=== PATIENT | male | born 1965 | race Hispanic/Latino ===

== ENCOUNTER 2020-09-05 12:53 | Emergency (ER) | payer OTHER ==
[2020-09-05] MEDS ORDERED: DIATR MEGLU/DIATRIZOATE SODIUM 30 ML BOTTLE ONE (13:06)
== END 2020-09-05 16:35 | disposition home or self-care (01) ==
LOC: EDH 12:53
DX: K94.23 Gastrostomy malfunction (principal); I10 Essential (primary) hypertension; Z86.73 Personal history of transient ischemic attack (TIA), and cerebral infarction without residual deficits
CPT/HCPCS: 74018; 99283; Q9963

== ENCOUNTER 2020-11-07 12:31 | Emergency (ER) | payer OTHER ==
[2020-11-07 13:00] LABS: BASOPHILS % (AUTO) 0.5 % (0.0-5.0); EOSINOPHILS % (AUTO) 3.6 % (0.0-8.0); HEMATOCRIT 37.3 % (42-54); LYMPHOCYTES % (AUTO) 28.5 % (21.0-51.0); MEAN CORPUSCULAR HEMOGLOBIN 32.3 pg (27.0-33.0); MEAN CORPUSCULAR HGB CONC 33.5 g/dL (32.0-36.0); MEAN CORPUSCULAR VOLUME 96.4 fL (79-99); MONOCYTES % (AUTO) 7.1 % (3.0-13.0); NEUTROPHILS % (AUTO) 59.9 % (40.0-77.0); PLATELET COUNT (AUTO) 217 K/uL (130-400); RED BLOOD CELL COUNT(AUTO) 3.87 MIL/uL (4.50-6.20); RED CELL DISTRIBUTION WIDTH 13.9 % (11.0-15.5); WHITE BLOOD COUNT (AUTO) 8.3 K/uL (4.8-10.8)
[2020-11-07] MEDS ORDERED: SODIUM CHLORIDE 0.9% 1000ML 1,000 ML IV ONE (13:04)
[2020-11-07] MEDS ORDERED: ALBUTEROL INHALER 90MCG/INH IH ONE (13:04)
[2020-11-07 13:16] LABS: ALBUMIN 2.7 g/dL (3.5-5.0); BILIRUBIN,TOTAL 0.8 mg/dL (0.2-1.0); CREATININE 0.6 mg/dL (0.5-1.5); POTASSIUM 4.9 mmol/L (3.5-5.1); TOTAL PROTEIN, SERUM 6.7 g/dL (6.0-8.3)
[2020-11-07 13:20] LABS: B-TYPE NATRIURETIC PEPTIDE 142 pg/mL (0-100)
[2020-11-07 13:22] LABS: INR 1.34 (0.85-1.15)
[2020-11-07 13:23] LABS: PARTIAL THROMBOPLASTIN TIME 27.3 SEC (26.3-35.5)
[2020-11-07] MEDS ORDERED: IOHEXOL 350 MG/ML 100ML INFUS..BTL IV ONE (13:26)
[2020-11-07 13:29] LABS: APPEARANCE,URINE Clear (CLEAR); BILIRUBIN,URINE Negative (NEGATIVE); COLOR,URINE Yellow (YELLOW); GLUCOSE, URINE (UA) Negative (NEGATIVE); KETONES,URINE Negative (NEGATIVE); LEUKOCYTE ESTERASE ,URINE Trace (NEGATIVE); NITRATE,URINE Negative (NEGATIVE); OCCULT BLOOD,URINE Small (NEGATIVE); PH,URINE 7.5 (5.0-8.0); PROTEIN,URINE Negative (NEGATIVE)
[2020-11-07 13:43] LABS: BACTERIA,URINE Few /HPF (None Seen); SQUAMOUS EPITHELIAL CELL,UR Few /HPF (0-2)
== END 2020-11-07 17:10 | disposition home or self-care (01) ==
LOC: EDH 12:31
DX: B34.9 Viral infection, unspecified (principal); E86.0 Dehydration; I95.9 Hypotension, unspecified; I48.91 Unspecified atrial fibrillation; Z20.828 Contact with and (suspected) exposure to other viral communicable diseases
CPT/HCPCS: 36415; 71045; 74177; 80053; 81001; 82550; 83690; 83880; 84484; 85025; 85610; 85730; 87426; 93005; 96360; 96361; 99285; J7030; Q9967